=== PATIENT | female | born 1980 | race African-American/Black ===

== ENCOUNTER 2016-06-20 05:10 | Emergency (ER) | payer OTHER ==
[2016-06-20] MEDS ORDERED: LIDOCAINE 1% INJ-PF (10 MG/ML) 30 ML SDV ONE ×2 (05:47→05:51)
--- NOTE | 2016-06-20 06:11 | ER Document Report ---
ED General - General Chief Complaint: Abscess Stated Complaint: ABSCESS ON LEFT LEG Mode of Arrival: Ambulatory Information source: Patient Notes: 36 yr old female with hx of mrsa presents with left inner thigh abscess of 2-3 day duration, denies any fevers or chills . TRAVEL OUTSIDE OF THE [place] IN LAST 30 DAYS: No - HPI Onset: Other Onset/Duration: Persistent, Worse Quality of pain: Sharp Severity: Moderate Pain Level: 2 Associated symptoms: Other Exacerbated by: Movement Relieved by: Denies Similar symptoms previously: Yes Recently seen / treated by doctor: Yes - Related Data Allergies/Adverse Reactions: No Known Allergies Allergy (Unverified 06/20/16 05:24) Past Medical History - Social History Smoking Status: Never Smoker Cigarette use (# per day): No Chew tobacco use (# tins/day): No Smoking Education Provided: No Family History: Reviewed & Not Pertinent, CVA - Brother at the age 50. - Past Medical History Cardiac Medical History: Reports: Hx Hypertension Endocrine Medical History: Reports: Hx Diabetes Mellitus Type 2 Renal/ Medical History: Denies: Hx Peritoneal Dialysis Review of Systems - Review of Systems Notes: REVIEW OF SYSTEMS: CONSTITUTIONAL : Denies fever, chills, or sweats. Denies recent illness. EENT: Denies eye, ear, throat, or mouth pain or symptoms. Denies nasal or sinus congestion or discharge. Denies throat, tongue, or mouth swelling or difficulty swallowing. CARDIOVASCULAR: Denies chest pain. Denies palpitations or racing or irregular heart beat. Denies ankle edema. RESPIRATORY: Denies cough, cold, or chest congestion. Denies shortness of breath, difficulty breathing, or wheezing. GASTROINTESTINAL: Denies abdominal pain or distention. Denies nausea, vomiting , or diarrhea. Denies blood in vomitus, stools, or per rectum. Denies black, tarry stools. Denies constipation. GENITOURINARY: Denies difficulty urinating, painful urination, burning, frequency, blood in urine, or discharge. FEMALE GENITOURINARY: Denies vaginal bleeding, heavy or abnormal periods, irregular periods. Denies vaginal discharge or odor. MUSCULOSKELETAL: Denies back or neck pain or stiffness. Denies joint pain or swelling. SKIN: left thigh abscess HEMATOLOGIC : Denies easy bruising or bleeding. LYMPHATIC: Denies swollen, enlarged glands. NEUROLOGICAL: Denies confusion or altered mental status. Denies passing out or loss of consciousness. Denies dizziness or lightheadedness. Denies headache. Denies weakness or paralysis or loss of use of either side. Denies problems with gait or speech. Denies sensory loss, numbness, or tingling. Denies seizures. PSYCHIATRIC: Denies anxiety or stress. Denies depression, suicidal ideation, or homicidal ideation. ALL OTHER SYSTEMS REVIEWED AND NEGATIVE. Dictation was performed using [employer] voice recognition software PHYSICAL EXAMINATION: GENERAL: Well-appearing, well-nourished and in no acute distress. HEAD: Atraumatic, normocephalic. EYES: Pupils equal round and reactive to light, extraocular movements intact, conjunctiva are normal. ENT: Nares patent, oropharynx clear without exudates. Moist mucous membranes. NECK: Normal range of motion, supple without lymphadenopathy LUNGS: Breath sounds clear to auscultation bilaterally and equal. No wheezes rales or rhonchi. HEART: Regular rate and rhythm without murmurs ABDOMEN: Soft, nontender, nondistended abdomen. No guarding, no rebound. No masses appreciated. Female : deferred Musculoskeletal: Normal range of motion, no pitting or edema. No cyanosis. NEUROLOGICAL: Cranial nerves grossly intact. Normal speech, normal gait. Normal sensory, motor exams PSYCH: Normal mood, normal affect. SKIN:4x5 cm absvcess without cellulitis Physical Exam - Vital signs Vitals: Temp Pulse Resp BP Pulse Ox 97.5 F 99 20 146/96 H 99 06/20/16 05:16 06/20/16 05:16 06/20/16 05:16 06/20/16 05:16 06/20/16 05:16 Course - Re-evaluation Re-evalutation: 06/20/16 06:11 Area was anesthetized incised moderate amount of pus drained patient will be placed on antibiotics is otherwise stable for discharge Restrict return precautions provided recheck in 48 hours After performing a Medical Screening Examination, I estimate there is LOW risk for OPEN FRACTURE, COMPARTMENT SYNDROME, TENDON RUPTURE, ACUTE NEUROVASCULAR INJURY, or RETAINED FOREIGN BODY, thus I consider the discharge disposition reasonable. Also, there is no evidence or peritonitis, sepsis, or toxicity. I have reevaluated this patient multiple times and no significant life threatening changes are noted. The patient and I have discussed the diagnosis and risks, and we agree with discharging home with close follow-up with the understanding that symptoms and presentations can change. We also discussed returning to the Emergency Department immediately if new or worsening symptoms occur. We have discussed the symptoms which are most concerning (e.g., changing or worsening pain, fever, numbness, weakness, cool or painful digits) that necessitate immediate return. - Vital Signs Vital signs: Temp Pulse Resp BP Pulse Ox 97.5 F 99 20 146/96 H 99 06/20/16 05:16 06/20/16 05:16 06/20/16 05:16 06/20/16 05:16 06/20/16 05:16 Procedures - Incision and Drainage Left Thigh Time completed: 06:12 Type: Simple Anesthetic type: 1% Lidocaine mL's of anesthetic: 10 I&D procedure: Shurclens applied, Sterile dressing applied Incision Method: Incision made by scalpel Amount/type of drainage: moderate amount of pus Discharge - Discharge Clinical Impression: Abscess, Left thigh pain Condition: Stable Disposition: HOME, SELF-CARE Instructions: Abscess ([facility]), Post Incision and Drainage Additional Instructions: follow up in 48 hours for recheck or return immediately if there are any other concerns Prescriptions: Cephalexin Monohydrate [Keflex 500 mg Capsule] 500 mg PO QID #40 capsule Ibuprofen [Motrin 800 mg Tablet] 800 mg PO Q8H PRN #30 tab PRN Reason: Sulfamethoxazole/Trimethoprim [Bactrim Ds Tablet] 2 each PO BID #40 tablet
[2016-06-20 06:58] VITALS: BP 133/78
== END 2016-06-20 06:56 | disposition home or self-care (01) ==
LOC: ER 05:10
PROC: 0H9JXZZ Drainage of Left Upper Leg Skin, External Approach (ICD-10-PCS; principal; 2016-06-20)
DX: L02.416 Cutaneous abscess of left lower limb (principal)
CPT/HCPCS: 99283; 10060; J3490

== ENCOUNTER 2017-10-16 05:30 | Emergency (ER) | payer OTHER ==
--- NOTE | 2017-10-16 07:28 | ER Document Report ---
ED General - General Chief Complaint: Abscess Stated Complaint: ABSCESS Time Seen by Provider: 10/16/17 07:23 Mode of Arrival: Ambulatory Information source: Patient TRAVEL OUTSIDE OF THE [place] IN LAST 30 DAYS: No - HPI Notes: 37-year-old female with a medical history diabetes presents to ED with complaints of left buttock abscess that started 3 days ago. Pain is 7 out of 10 , constant, try [id number] ibuprofen and Tylenol without relief. To try warm packs. Denies history of MRSA. States she has recurrent abscesses. Patient does have a history of controlled diabetes. Patient does not have a primary care provider at this time. Worse with time, nothing makes better denies fevers, chills, chest pain,palpitations, shortness of breath, dyspnea, abdominal pain, hematuria,blurred vision, double vision, loss of vision, speech changes, LH, dizziness, syncope, headaches, wheezing, ST, URI, neck pain , weakness, bowel or bladder dysfunction, saddle anesthesia, numbness or tingling in bilateral upper or lower extremities equally, muscle paralysis, weakness in bilateral upper or lower extremities equally or rash. - Related Data Allergies/Adverse Reactions: No Known Allergies Allergy (Verified 10/16/17 07:28) Past Medical History - General Information source: Patient - Social History Smoking Status: Unknown if Ever Smoked Family History: Reviewed & Not Pertinent, CVA - Brother at the age 50. - Past Medical History Cardiac Medical History: Reports: Hx Hypertension Endocrine Medical History: Reports: Hx Diabetes Mellitus Type 2 Renal/ Medical History: Denies: Hx Peritoneal Dialysis Review of Systems - Review of Systems Constitutional: No symptoms reported EENT: No symptoms reported Cardiovascular: No symptoms reported Respiratory: No symptoms reported Gastrointestinal: No symptoms reported Genitourinary: No symptoms reported Female Genitourinary: No symptoms reported Musculoskeletal: No symptoms reported Skin: See HPI Hematologic/Lymphatic: No symptoms reported Neurological/Psychological: No symptoms reported Physical Exam - Vital signs Vitals: Temp Pulse Resp BP Pulse Ox 99.2 F 95 18 150/88 H 100 10/16/17 05:46 10/16/17 05:46 10/16/17 05:46 10/16/17 05:46 10/16/17 05:46 - Notes Notes: PHYSICAL EXAMINATION: GENERAL: Well-appearing, well-nourished and in no acute distress. HEAD: Atraumatic, normocephalic. EYES: Pupils equal round and reactive to light, extraocular movements intact, conjunctiva are normal. ENT: Nares patent, oropharynx clear without exudates. Moist mucous membranes. NECK: Normal range of motion, supple without lymphadenopathy LUNGS: Breath sounds clear to auscultation bilaterally and equal. No wheezes rales or rhonchi. HEART: Regular rate and rhythm without murmurs ABDOMEN: Soft, nontender, nondistended abdomen. No guarding, no rebound. No masses appreciated. Female : deferred Musculoskeletal: Normal range of motion, no pitting or edema. No cyanosis. NEUROLOGICAL: Cranial nerves grossly intact. Normal speech, normal gait. Normal sensory, motor exams PSYCH: Normal mood, normal affect. SKIN: Warm, Dry, normal turgor, no rashes or lesions noted. Left inner buttocks with 3 cm area of induration with erythema, noted fluctuance. No surrounding lymphadenopathy. No surrounding erythema. Tender on palpation. Course - Re-evaluation Re-evalutation: 10/16/17 07:59 37-year-old female who is afebrile vitals stable and in no distress presents for incision and drainage of abscess to left buttocks. Wound culture has been obtained. Will place patient on clindamycin for 4 a boil that she thinks she is starting underneath her arm. Patient does have a long history of abscesses. Patient does not do bleach baths. States she does get the this is in the humidity. Access is right at the inner aspect of the left buttocks proximal to the rectum. Due to the fact patient is a diabetic and the location of the abscess, will prescribe patient antibiotics to prevent infection. Advised patient to return to the emergency room in 2 days for repacking. Patient is advised to eat yogurt daily to prevent diarrhea or nausea. After performing a Medical Screening Examination, I estimate there is LOW risk for OPEN FRACTURE, COMPARTMENT SYNDROME, TENDON RUPTURE, ACUTE NEUROVASCULAR INJURY, or RETAINED FOREIGN BODY, thus I consider the discharge disposition reasonable. Also, there is no evidence or peritonitis, sepsis, or toxicity. I have reevaluated this patient multiple times and no significant life threatening changes are noted. The patient and I have discussed the diagnosis and risks, and we agree with discharging home with close follow-up with the understanding that symptoms and presentations can change. We also discussed returning to the Emergency Department immediately if new or worsening symptoms occur. We have discussed the symptoms which are most concerning (e.g., changing or worsening pain, fever , numbness, weakness, cool or painful digits) that necessitate immediate return. 10/16/17 09:59 - Vital Signs Vital signs: Temp Pulse Resp BP Pulse Ox 99.2 F 95 18 150/88 H 100 10/16/17 05:46 10/16/17 05:46 10/16/17 05:46 10/16/17 05:46 10/16/17 05:46 Procedures - Incision and Drainage Left Buttock Type: Simple Anesthetic type: 1% Lidocaine w/epi mL's of anesthetic: 4 - mL Blade size: 11 I&D procedure: Shurclens applied Incision Method: Incision made by scalpel Amount/type of drainage: 10mL purulent drainage Notes: 10/16/17 09:58 Deann clamp used to break up inoculations. Irrigated with normal saline flush 50 cc, no foreign body seen on expiration of wound. wound Packed with iodoform 1/4th inch, approximately 4 cm packed. When a frame sterile gauze placed over. Advised patient to return to the emergency room 2 days for repacking Discharge - Discharge Clinical Impression: Abscess, Diabetes type 2, controlled Condition: Stable Disposition: HOME, SELF-CARE Instructions: Abscess ([facility]), Post Incision and Drainage, Clindamycin ([facility]), Oral Narcotic Medication ([facility]) Additional Instructions: Do not drive, drink alcohol or operate machinery while taking [place] as it can cause impairment in judgment. Return in 2 days for wound packing. Take antibiotic with food as directed. Monitor ins and signs and symptoms of infection such as redness, drainage, swelling. If experience any worsening pain , fever, lower back pain, weaknesses, numbness or tingling issues with bowel or bladder incontinence, etc, Return to the ED immediately. Return immediately for any new or worsening symptoms. Follow up with primary care provider, call tomorrow to make followup appointment. Prescriptions: Clindamycin HCl 300 mg PO Q6H #28 capsule Forms: Return to Work Referrals: CALI PATEL MD [COMMUNITY BASED STAFF] - Follow up as needed
[2017-10-16] MEDS ORDERED: LIDOCAINE 1.5%/EPINEPHRINE INJ-PF 30 ML SDV INJ ONE (07:52)
[2017-10-16] MEDS ORDERED: HYDROCODONE/ACETAMINOPHEN 5-325 MG (6 TAB/ER DISP) PO PRN (07:56)
[2017-10-16 09:12] VITALS: BP 154/93
== END 2017-10-16 09:05 | disposition home or self-care (01) ==
LOC: ER 05:30
PROC: 0H98XZZ Drainage of Buttock Skin, External Approach (ICD-10-PCS; principal; 2017-10-16)
DX: L02.31 Cutaneous abscess of buttock (principal); E11.9 Type 2 diabetes mellitus without complications; I10 Essential (primary) hypertension
CPT/HCPCS: 99283; 87070; 87205; 10060; J3490

== ENCOUNTER 2018-05-10 10:16 | Emergency (ER) | payer OTHER ==
--- NOTE | 2018-05-10 10:50 | ER Document Report ---
ED General - General Chief Complaint: Vag Bleeding, +preg <12wks Stated Complaint: SPOTTING Time Seen by Provider: 05/10/18 10:31 Primary Care Provider: ROCAEL MONTEMAYOR MD [ACTIVE STAFF] - 05/15/18 TASIA ANDINO FNP-C [Primary Care Provider] - Follow up as needed Mode of Arrival: Ambulatory Information source: Patient, [facility] Records Notes: 37-year-old female a 1 at approximately 6 weeks and 2 days per last menstrual period which was March 27, 2018 presents with complaint of lower abdominal cramping and vaginal bleeding. Patient had a confirmed test at her primary care physician's office on April 29. She states yesterday she began having mild cramping that lasted throughout the day. She states this morning the cramping had improved and when she went to the bathroom she noticed some light pink spotting. Patient denies any dark red blood, passage of clots. 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 She denies any fever, chills, nausea, vomiting, vaginal discharge, dysuria, hematuria. Patient quit smoking tobacco and marijuana when she discovered she was . Patient is scheduled to see OB on May 15, 2018. She did contact her primary care physician's office this morning who recommended coming into the emergency department. TRAVEL OUTSIDE OF THE [place] IN LAST 30 DAYS: No - HPI Onset: Yesterday Onset/Duration: Gradual, Better Quality of pain: Cramping Severity: Mild Associated symptoms: Nausea, Other - Mild vaginal bleeding, abdominal cramping. denies: Body/muscle aches, Chest pain, Chills, Diarrhea, Fever, Hurts to breath, Leg swelling, Vomiting, Shortness of breath Exacerbated by: Denies Relieved by: Denies Similar symptoms previously: No Recently seen / treated by doctor: Yes - Patient's primary care physician on 04/29/2018 - Related Data Allergies/Adverse Reactions: No Known Allergies Allergy (Verified 10/16/17 07:28) Past Medical History - General Information source: Patient, Relative, [facility] Records Last Menstrual Period: 03/27/18 - Social History Smoking Status: Former Smoker Chew tobacco use (# tins/day): No Frequency of alcohol use: None Drug Abuse: None Lives with: Spouse/Significant other Family History: Reviewed & Not Pertinent, CVA - Brother at the age 50. Patient has suicidal ideation: No Patient has homicidal ideation: No - Past Medical History Cardiac Medical History: Reports: Hx Hypertension Endocrine Medical History: Reports: Hx Diabetes Mellitus Type 2 Renal/ Medical History: Denies: Hx Peritoneal Dialysis Past Surgical History: Reports: Hx Breast Surgery - reduction Review of Systems - Review of Systems Notes: REVIEW OF SYSTEMS: CONSTITUTIONAL : Denies fever, chills, or sweats. Denies recent illness. Denies weight loss, recent hospitalizations. EENT: Denies visual changes, eye pain. Denies sore throat, oral lesions, difficulty swallowing. CARDIOVASCULAR: Denies chest pain. Denies palpitations. Denies lower extremity edema. RESPIRATORY: Denies cough. Denies shortness of breath, wheezing. GASTROINTESTINAL: Denies abdominal distention. Denies vomiting, or diarrhea. Denies blood in vomitus, stools, or per rectum. Denies black, tarry stools. Denies constipation. GENITOURINARY: Denies difficulty urinating, painful urination, frequency, blood in urine, or vaginal discharge.+ Vaginal bleeding MUSCULOSKELETAL: Denies back or neck pain or stiffness. Denies joint pain or swelling. SKIN: Denies rash, lesions or sores. HEMATOLOGIC : Denies easy bruising or bleeding. LYMPHATIC: Denies swollen glands. NEUROLOGICAL: Denies confusion or altered mental status. Denies loss of consciousness. Denies dizziness or lightheadedness. Denies headache. Denies weakness or paralysis. Denies problems difficulty with ambulation, slurred speech. Denies sensory loss, numbness, or tingling. Denies seizures. PSYCHIATRIC: Denies anxiety or stress. Denies depression, suicidal ideation, or homicidal ideation. Denies visual or auditory hallucinations. Physical Exam - Vital signs Vitals: Temp Pulse Resp BP Pulse Ox 98.9 F 97 16 151/80 H 100 05/10/18 10:21 05/10/18 10:21 05/10/18 10:21 05/10/18 10:21 05/10/18 10:21 - Notes Notes: PHYSICAL EXAMINATION: GENERAL: Well-appearing, well-nourished and in no acute distress. HEAD: Atraumatic, normocephalic. EYES: Pupils equal round and reactive to light, extraocular movements intact, conjunctiva are normal. ENT: Nares patent, oropharynx clear without exudates. Moist mucous membranes. NECK: Normal range of motion, supple without lymphadenopathy LUNGS: Breath sounds clear to auscultation bilaterally and equal. No wheezes rales or rhonchi. HEART: Regular rate and rhythm without murmurs ABDOMEN: Soft, nontender, nondistended abdomen. No guarding, no rebound. No masses appreciated. Female : Cervix closed, no vaginal bleeding Musculoskeletal: Normal range of motion, no pitting or edema. No cyanosis. NEUROLOGICAL: Cranial nerves grossly intact. Normal speech, normal gait. Normal sensory, motor exams PSYCH: Normal mood, normal affect. SKIN: Warm, Dry, normal turgor, no rashes or lesions noted. Course - Re-evaluation Re-evalutation: Temp Pulse Resp BP Pulse Ox 98.9 F 97 16 151/80 H 100 05/10/18 10:21 05/10/18 10:21 05/10/18 10:21 05/10/18 10:21 05/10/18 10:21 Laboratory 05/10/18 05/10/18 05/10/18 11:09 11:09 11:43 WBC 11.2 H RBC 4.54 Hgb 13.3 Hct 40.1 MCV 88 MCH 29.3 MCHC 33.2 RDW 15.3 H Plt Count 367 Seg Neutrophils % 60.9 Lymphocytes % 29.9 Monocytes % 6.3 Eosinophils % 1.8 Basophils % 1.1 Absolute Neutrophils 6.8 Absolute Lymphocytes 3.3 Absolute Monocytes 0.7 Absolute Eosinophils 0.2 Absolute Basophils 0.1 Beta HCG, Quant 69501.00 H Total Beta HCG POSITIVE Urine Color Urine Appearance Urine pH Ur Specific [place] Urine Protein Urine Glucose (UA) Urine Ketones Urine Blood Urine Nitrite Urine Bilirubin Urine Urobilinogen Ur Leukocyte Esterase Urine WBC (Auto) Urine RBC (Auto) Squamous Epi Cells Auto Urine Mucus (Auto) Urine Ascorbic Acid Blood Type O POSITIVE Rhogam Indicated RHOGAM NOT INDICATED 05/10/18 11:43 WBC RBC Hgb Hct MCV MCH MCHC RDW Plt Count Seg Neutrophils % Lymphocytes % Monocytes % Eosinophils % Basophils % Absolute Neutrophils Absolute Lymphocytes Absolute Monocytes Absolute Eosinophils Absolute Basophils Beta HCG, Quant Total Beta HCG Urine Color YELLOW Urine Appearance CLEAR Urine pH 6.0 Ur Specific [place] 1.021 Urine Protein NEGATIVE Urine Glucose (UA) 50 H Urine Ketones TRACE H Urine Blood NEGATIVE Urine Nitrite NEGATIVE Urine Bilirubin NEGATIVE Urine Urobilinogen 4.0 H Ur Leukocyte Esterase NEGATIVE Urine WBC (Auto) 1 Urine RBC (Auto) 1 Squamous Epi Cells Auto 2 Urine Mucus (Auto) FEW Urine Ascorbic Acid NEGATIVE Blood Type Rhogam Indicated Obstetrics Ultrasound 05/10/18 10:44 IMPRESSION: LIVING INTRAUTERINE . EGA 6 weeks 2 days. Uterine fibroid. Trimester of : First - 0 to 13 weeks. 05/10/18 10:51 37-year-old female A1 at approximately 6 weeks and 2 days per last menstrual period presents with complaint of abdominal cramping and mild vaginal bleeding. Previous medical records and nursing notes reviewed. Vital signs reviewed upon arrival and within normal limit except for mildly elevated blood pressure which patient does have a history of. Patient does not appear toxic or dehydrated. She does not have any reproducible abdominal pain. Laboratory testing is unremarkable. Patient does not need RhoGam. Transvaginal ultrasound showed a live intrauterine . Patient does have an upcoming appointment with OB in 1 week. She was advised that if abdominal pain worsens or she experiences worsening vaginal bleeding she should return to the emergency department immediately. Patient was provided copies of her lab work and imaging that were performed today. Patient was evaluated and treated as appropriate for the patient's presenting symptoms and complaint, with consideration of any critical or life threatening conditions that may be associated with their obtained history and exam as noted above. All results were discussed with patient . Patient provided the opportunity to ask questions, and express concerns. Patient was educated on treatments based on their presumed diagnosis as noted above. At this time we will discharge the patient with return precautions and follow-up recommendations. Verbal discharge instructions given a the bedside. Medication warnings reviewed. Patient is in agreement with this plan and has verbalized understanding of return precautions. After careful consideration I feel that that patient can be safely discharged from the emergency department, they were advised to followup with a primary care physician in 2-3 days. Dictation on this chart was performed using voice recognition software and may result in unintended grammatical, spelling, syntax or errors. 05/10/18 19:31 - Vital Signs Vital signs: Temp Pulse Resp BP Pulse Ox 98.9 F 91 18 143/86 H 100 05/10/18 10:21 05/10/18 13:00 05/10/18 13:00 05/10/18 13:00 05/10/18 13:00 - Laboratory Result Diagrams: 05/10/18 11:09 Laboratory results interpreted by me: 05/10/18 05/10/18 05/10/18 11:09 11:43 11:43 WBC 11.2 H RDW 15.3 H Beta HCG, Quant 22535.00 H Urine Glucose (UA) 50 H Urine Ketones TRACE H Urine Urobilinogen 4.0 H - Diagnostic Test Radiology reviewed: Image reviewed, Reports reviewed Discharge - Discharge Clinical Impression: Vaginal bleeding during , Threatened miscarriage, First trimester Abdominal pain in Qualifiers: Trimester: first trimester Qualified Code(s): O26.891 - Other specified related conditions, first trimester Hypertension Qualifiers: Hypertension type: unspecified Qualified Code(s): I10 - Essential (primary) hypertension Condition: Good Disposition: HOME, SELF-CARE Instructions: Bleeding During Early ([facility]), Pelvic Pain in ([facility]), ([facility]), Threatened Miscarriage ([facility]) Additional Instructions: Please return with worsening pain, worsening bleeding or any other symptoms that are concerning to you. I have provided you your blood work and imaging results that you should bring with you to your [facility] doctor on May 15. Forms: Elevated Blood Pressure, Return to Work Referrals: TASIA ANDINO, [facility] [employer]-[facility] [Primary Care Provider] - Follow up as needed ROCAEL MONTEMAYOR MD [ACTIVE STAFF] - 05/15/18
[2018-05-10 11:39] LABS: ABSOLUTE BASOPHILS # (AUTO) 0.1 10^3/uL (0.0-0.2); ABSOLUTE EOSINOPHILS # (AUTO) 0.2 10^3/uL (0.0-0.6); ABSOLUTE LYMPHOCYTES (AUTO) 3.3 10^3/uL (0.5-4.7); ABSOLUTE MONOCYTES (AUTO) 0.7 10^3/uL (0.1-1.4); ABSOLUTE NEUT (AUTO) 6.8 10^3/uL (1.7-8.2); BASOPHILS % (AUTO) 1.1 % (0-2); EOSINOPHILS % (AUTO) 1.8 % (0-6); HEMATOCRIT 40.1 % (36.0-47.0); HEMOGLOBIN 13.3 g/dL (12.0-15.5); LYMPHOCYTES % (AUTO) 29.9 % (13-45); MEAN CORPUSCULAR HEMOGLOBIN 29.3 pg (27.0-33.4); MEAN CORPUSCULAR HGB CONC 33.2 g/dL (32.0-36.0); MEAN CORPUSCULAR VOLUME 88 fl (80-97); MONOCYTES % (AUTO) 6.3 % (3-13); PLATELET COUNT 367 10^3/uL (150-450); RED BLOOD COUNT 4.54 10^6/uL (3.72-5.28); RED CELL DISTRIBUTION WIDTH 15.3 % (11.5-14.0); SEGMENTED NEUTROPHILS % (AUTO) 60.9 % (42-78); TOTAL CELLS COUNTED % (AUTO) 100 %; WHITE BLOOD COUNT 11.2 10^3/uL (4.0-10.5)
[2018-05-10 12:07] LABS: APPEARANCE,URINE CLEAR; BILIRUBIN,URINE NEGATIVE (NEGATIVE); COLOR,URINE YELLOW; GLUCOSE, URINE 50 mg/dL (NEGATIVE); KETONES,URINE TRACE mg/dL (NEGATIVE); LEUKOCYTE ESTERASE,URINE NEGATIVE (NEGATIVE); NITRITE,URINE NEGATIVE (NEGATIVE); PROTEIN,URINE NEGATIVE (NEGATIVE); URINE SPECIFIC GRAVITY 1.021
--- NOTE | 2018-05-10 12:22 | RADIOLOGY REPORT (SQ) ---
EXAM DESCRIPTION: U/S OB TRANSVAGINAL W/O DOP COMPLETED DATE/TIME: 05/10/2018 11:49 am REASON FOR STUDY: + wiht pain and bleeding COMPARISON: None. TECHNIQUE: Transvaginal static and realtime grayscale images acquired of the pelvis. Additional mile cted spectral and color Doppler images recorded. All images stored on PACs. bHCG: Not available. CLINICAL DATES: 6 weeks 2 days LIMITATIONS: None. FINDINGS: FETUS: Single Living intrauterine . ULTRASOUND EGA: 6 weeks 2 days ULTRASOUND ELVI: 12/04/2018 EFW: Not applicable less than 20 weeks. CRL: 6 mm FHR: 114 beats per minute. SURVEY: No visualized anomalies. AMNIOTIC FLUID: Adequate amount. PLACENTA: Not yet developed due to early gestation. SUBCHORIONIC BLEED: No. SIZE OF BLEED: Not applicable. UTERUS: 2.5 cm fibroid. CERVICAL LENGTH: 3.3 cm. Closed. RIGHT ADNEXA: Normal ovary with normal vascular flow. No adnexal free fluid. No adnexal masses. LEFT ADNEXA: Normal ovary with normal vascular flow. No adnexal free fluid. No adnexal masses. FREE FLUID: None. OTHER: No other significant finding. IMPRESSION: LIVING INTRAUTERINE . EGA 6 weeks 2 days. Uterine fibroid. Trimester of : First - 0 to 13 weeks. TECHNICAL DOCUMENTATION: JOB ID: [id number]- All Rights Reserved rev Reading location - IP/workstation name: [email or web address]
[2018-05-10 13:13] VITALS: BP 143/86
== END 2018-05-10 13:00 | disposition home or self-care (01) ==
LOC: ER 10:16
DX: O20.0 Threatened abortion (principal); O34.11 Maternal care for benign tumor of corpus uteri, first trimester; D25.9 Leiomyoma of uterus, unspecified; O26.891 Other specified pregnancy related conditions, first trimester; R10.30 Lower abdominal pain, unspecified; R11.0 Nausea; O16.1 Unspecified maternal hypertension, first trimester; O24.111 Pre-existing type 2 diabetes mellitus, in pregnancy, first trimester; E11.9 Type 2 diabetes mellitus without complications; Z3A.01 Less than 8 weeks gestation of pregnancy; Z87.891 Personal history of nicotine dependence
CPT/HCPCS: 36415; 76817; 81001; 84702; 85025; 86900; 86901; 99284

== ENCOUNTER → 2018-10-13 | Outpatient (CLI) | payer OTHER ==
[2018-10-13 10:47] LABS: HEMATOCRIT 39.1 % (36.0-47.0); HEMOGLOBIN 12.7 g/dL (12.0-15.5); MEAN CORPUSCULAR HEMOGLOBIN 29.1 pg (27.0-33.4); MEAN CORPUSCULAR HGB CONC 32.5 g/dL (32.0-36.0); MEAN CORPUSCULAR VOLUME 90 fl (80-97); PLATELET COUNT 318 10^3/uL (150-450); RED BLOOD COUNT 4.37 10^6/uL (3.72-5.28); RED CELL DISTRIBUTION WIDTH 13.9 % (11.5-14.0); WHITE BLOOD COUNT 11.3 10^3/uL (4.0-10.5)
[2018-10-13 11:11] LABS: ANION GAP 9 (5-19); ASPARTATE AMINO TRANSFERASE 16 U/L (14-36); CARBON DIOXIDE 24 mmol/L (22-30); CHLORIDE 105 mmol/L (98-107); POTASSIUM 3.8 mmol/L (3.6-5.0); URIC ACID 4.7 mg/dL (2.5-7.0)
== END ==
LOC: OD 09:56
PROVIDERS: ATTEND Obstetrics & Gynecology
DX: O14.03 Mild to moderate pre-eclampsia, third trimester (principal)
CPT/HCPCS: 36415; 80051; 82565; 83615; 84450; 84550; 85027

== ENCOUNTER 2018-10-27 11:34 | Outpatient (CLI) | payer OTHER ==
[2018-10-27 12:27] LABS: APPEARANCE,URINE SLIGHTLY-CLOUDY; BILIRUBIN,URINE NEGATIVE (NEGATIVE); COLOR,URINE YELLOW; GLUCOSE, URINE NEGATIVE (NEGATIVE); KETONES,URINE NEGATIVE (NEGATIVE); LEUKOCYTE ESTERASE,URINE NEGATIVE (NEGATIVE); NITRITE,URINE NEGATIVE (NEGATIVE); PROTEIN,URINE NEGATIVE (NEGATIVE); URINE SPECIFIC GRAVITY 1.018; UROBILINOGEN,URINE NEGATIVE mg/dL (<2.0)
[2018-10-27 12:30] LABS: HEMATOCRIT 39.3 % (36.0-47.0); MEAN CORPUSCULAR HEMOGLOBIN 29.7 pg (27.0-33.4); MEAN CORPUSCULAR VOLUME 90 fl (80-97); PLATELET COUNT 295 10^3/uL (150-450); RED BLOOD COUNT 4.37 10^6/uL (3.72-5.28); RED CELL DISTRIBUTION WIDTH 14.4 % (11.5-14.0); WHITE BLOOD COUNT 10.6 10^3/uL (4.0-10.5)
[2018-10-27 12:43] LABS: URINE AMPHETAMINES SCREEN NEGATIVE; URINE BARBITURATES SCREEN NEGATIVE; URINE BENZODIAZEPINES SCREEN NEGATIVE; URINE COCAINE SCREEN NEGATIVE; URINE MARIJUANA (THC) SCREEN NEGATIVE; URINE METHADONE SCREEN NEGATIVE; URINE PHENCYCLIDINE SCREEN NEGATIVE
[2018-10-27 12:52] LABS: ALBUMIN 3.4 g/dL (3.5-5.0); ALKALINE PHOSPHATASE 93 U/L (38-126); ANION GAP 9 (5-19); ASPARTATE AMINO TRANSFERASE 16 U/L (14-36); BILIRUBIN,DIRECT 0.1 mg/dL (0.0-0.4); BILIRUBIN,TOTAL 0.3 mg/dL (0.2-1.3); BLOOD UREA NITROGEN 12 mg/dL (7-20); CALCIUM 10.3 mg/dL (8.4-10.2); CARBON DIOXIDE 23 mmol/L (22-30); CHLORIDE 106 mmol/L (98-107); GLUCOSE 105 mg/dL (75-110); POTASSIUM 3.8 mmol/L (3.6-5.0); TOTAL PROTEIN 6.3 g/dL (6.3-8.2); URIC ACID 5.7 mg/dL (2.5-7.0)
[2018-10-27 13:03] LABS: UR PRO/CREAT RATIO RESULT 0.1 mg/mg (0.0-0.2); URINE CREATININE 112.6 mg/dL (16-327); URINE PROTEIN 8.8 mg/dL (<12)
== END 2018-10-27 13:56 | disposition home or self-care (01) ==
LOC: LC 11:34
PROVIDERS: ATTEND Obstetrics & Gynecology
PROC: 4A1HXCZ Monitoring of Products of Conception, Cardiac Rate, External Approach (ICD-10-PCS; principal; 2018-10-27)
DX: O14.93 Unspecified pre-eclampsia, third trimester (principal); Z3A.30 30 weeks gestation of pregnancy
CPT/HCPCS: 36415; 80053; 80307; 81001; 82570; 84156; 84550; 85027

== ENCOUNTER 2018-11-04 11:11 | Outpatient (CLI) | payer OTHER ==
[2018-11-04 11:37] LABS: APPEARANCE,URINE SLIGHTLY-CLOUDY; BILIRUBIN,URINE NEGATIVE (NEGATIVE); COLOR,URINE YELLOW; GLUCOSE, URINE NEGATIVE (NEGATIVE); KETONES,URINE NEGATIVE (NEGATIVE); LEUKOCYTE ESTERASE,URINE NEGATIVE (NEGATIVE); NITRITE,URINE NEGATIVE (NEGATIVE); PROTEIN,URINE NEGATIVE (NEGATIVE); URINE SPECIFIC GRAVITY 1.005; UROBILINOGEN,URINE NEGATIVE mg/dL (<2.0)
[2018-11-04 11:55] LABS: URINE AMPHETAMINES SCREEN NEGATIVE; URINE BARBITURATES SCREEN NEGATIVE; URINE BENZODIAZEPINES SCREEN NEGATIVE; URINE COCAINE SCREEN NEGATIVE; URINE MARIJUANA (THC) SCREEN NEGATIVE; URINE METHADONE SCREEN NEGATIVE; URINE PHENCYCLIDINE SCREEN NEGATIVE
[2018-11-04 12:00] LABS: UR PRO/CREAT RATIO RESULT 0.3 mg/mg (0.0-0.2); URINE CREATININE 43.5 mg/dL (16-327); URINE PROTEIN 12.7 mg/dL (<12)
[2018-11-04 12:56] LABS: HEMATOCRIT 36.4 % (36.0-47.0); HEMOGLOBIN 12.1 g/dL (12.0-15.5); MEAN CORPUSCULAR HEMOGLOBIN 30.2 pg (27.0-33.4); MEAN CORPUSCULAR HGB CONC 33.2 g/dL (32.0-36.0); MEAN CORPUSCULAR VOLUME 91 fl (80-97); PLATELET COUNT 265 10^3/uL (150-450); RED BLOOD COUNT 3.99 10^6/uL (3.72-5.28); RED CELL DISTRIBUTION WIDTH 14.7 % (11.5-14.0); WHITE BLOOD COUNT 9.6 10^3/uL (4.0-10.5)
[2018-11-04 13:31] LABS: ALKALINE PHOSPHATASE 89 U/L (38-126); ANION GAP 6 (5-19); ASPARTATE AMINO TRANSFERASE 21 U/L (14-36); BILIRUBIN,DIRECT 0.2 mg/dL (0.0-0.4); BILIRUBIN,TOTAL 0.3 mg/dL (0.2-1.3); BLOOD UREA NITROGEN 12 mg/dL (7-20); CALCIUM 9.5 mg/dL (8.4-10.2); CARBON DIOXIDE 23 mmol/L (22-30); CHLORIDE 109 mmol/L (98-107); POTASSIUM 4.2 mmol/L (3.6-5.0); URIC ACID 6.5 mg/dL (2.5-7.0)
[2018-11-04 13:39] LABS: GLUCOSE 69 mg/dL (75-110)
== END 2018-11-04 13:48 | disposition home or self-care (01) ==
LOC: LC 11:11
PROVIDERS: ATTEND Obstetrics & Gynecology
PROC: 4A1HXCZ Monitoring of Products of Conception, Cardiac Rate, External Approach (ICD-10-PCS; principal; 2018-11-04)
DX: O16.3 Unspecified maternal hypertension, third trimester (principal); O24.913 Unspecified diabetes mellitus in pregnancy, third trimester; O09.523 Supervision of elderly multigravida, third trimester; Z3A.31 31 weeks gestation of pregnancy
CPT/HCPCS: 36415; 80053; 80307; 81001; 82570; 82962; 84156; 84550; 85027

== ENCOUNTER 2018-11-10 11:41 | Inpatient (IN) | payer OTHER ==
[2018-11-10 12:30] LABS: ABSOLUTE EOSINOPHILS # (AUTO) 0.1 10^3/uL (0.0-0.6); ABSOLUTE LYMPHOCYTES (AUTO) 4.1 10^3/uL (0.5-4.7); ABSOLUTE MONOCYTES (AUTO) 0.9 10^3/uL (0.1-1.4); ABSOLUTE NEUT (AUTO) 5.2 10^3/uL (1.7-8.2); BASOPHILS % (AUTO) 0.3 % (0-2); EOSINOPHILS % (AUTO) 0.9 % (0-6); HEMATOCRIT 37.3 % (36.0-47.0); HEMOGLOBIN 12.3 g/dL (12.0-15.5); LYMPHOCYTES % (AUTO) 39.9 % (13-45); MEAN CORPUSCULAR HEMOGLOBIN 29.9 pg (27.0-33.4); MEAN CORPUSCULAR VOLUME 91 fl (80-97); MONOCYTES % (AUTO) 8.7 % (3-13); PLATELET COUNT 251 10^3/uL (150-450); RED BLOOD COUNT 4.12 10^6/uL (3.72-5.28); RED CELL DISTRIBUTION WIDTH 15.3 % (11.5-14.0); SEGMENTED NEUTROPHILS % (AUTO) 50.2 % (42-78); TOTAL CELLS COUNTED % (AUTO) 100 %; WHITE BLOOD COUNT 10.3 10^3/uL (4.0-10.5)
[2018-11-10 12:43] LABS: APPEARANCE,URINE CLEAR; BILIRUBIN,URINE NEGATIVE (NEGATIVE); COLOR,URINE AMBER; GLUCOSE, URINE NEGATIVE (NEGATIVE); KETONES,URINE NEGATIVE (NEGATIVE); LEUKOCYTE ESTERASE,URINE NEGATIVE (NEGATIVE); NITRITE,URINE NEGATIVE (NEGATIVE); PROTEIN,URINE NEGATIVE (NEGATIVE); URINE SPECIFIC GRAVITY 1.008; UROBILINOGEN,URINE NEGATIVE mg/dL (<2.0)
[2018-11-10] MEDS ORDERED: BETAMET ACET/BETAMET NA INJ 6 MG/1 ML ONE (12:50)
[2018-11-10 12:51] LABS: ALBUMIN 3.2 g/dL (3.5-5.0); ALKALINE PHOSPHATASE 115 U/L (38-126); ANION GAP 8 (5-19); ASPARTATE AMINO TRANSFERASE 28 U/L (14-36); BILIRUBIN,DIRECT 0.1 mg/dL (0.0-0.4); BILIRUBIN,TOTAL 0.6 mg/dL (0.2-1.3); BLOOD UREA NITROGEN 9 mg/dL (7-20); CALCIUM 9.6 mg/dL (8.4-10.2); CARBON DIOXIDE 23 mmol/L (22-30); CHLORIDE 108 mmol/L (98-107); GLUCOSE 76 mg/dL (75-110); POTASSIUM 3.8 mmol/L (3.6-5.0); TOTAL PROTEIN 6.4 g/dL (6.3-8.2)
[2018-11-10 13:00] LABS: URIC ACID 6.3 mg/dL (2.5-7.0)
[2018-11-10 13:07] LABS: URINE AMPHETAMINES SCREEN NEGATIVE; URINE BARBITURATES SCREEN NEGATIVE; URINE BENZODIAZEPINES SCREEN NEGATIVE; URINE COCAINE SCREEN NEGATIVE; URINE METHADONE SCREEN NEGATIVE; URINE PHENCYCLIDINE SCREEN NEGATIVE
--- NOTE | 2018-11-10 13:11 | Admission Physical ---
Datetime Report Generated by CPN: 11/10/2018 13:11 CURRENT ADMISSION Chief Complaint: Sent from OB Office for Evaluation and Treatment - Please Specify Indication for Induction: Not Applicable; IUGR; Chronic Primary/Essential HTN; Maternal Diabetes Admit Impression : , Intrauterine ; Observation/Evaluation; Medical Complication Admit Plan: Admit to Unit; Observation/Evaluation Admit Plan- Other: patient was sent from [facility] office for eval for possible ACS protocol due to hypertension in office. Spoke with [facility] regarding my recs for ACS and adjusting her BP meds and putting her back on HCTZ. Dr. Goss in agreement and recommends keeping patient in hospital while getting steroids due to affects it will have on patient's sugars. ALLERGIES Medication Allergies: No Medication Allergies: No Known Allergies (11/04/2018) Latex: No Latex Allergies OBSTETRICAL HISTORY EDC: 01/01/2019 00:00 : 2 : 1 Livin Gestational Diabetes: No Rh Sensitization: No Incompetent Cervix: No JET: No Infertility: No ART Treatment: No Uterine Anomaly: No IUGR: No Hx Previous C/S: No Macrosomia: No Hx Loss/Stillborn: Yes PIH: No Hx : No Placenta Previa/Abruption: No Depression/PP Depression: No PTL/PROM: Yes Post Hemorrhage: No Current Procedures: Ultrasound; NST Obstetrical History Comments: G1- 2003, stillborn at 21 weeks G2- Current SEE RECORDS Alcohol: No Marijuana : No Cocaine: No Other Illicit Drugs: No Cigarettes: Former Smoker. [id number] MEDICAL HISTORY Diabetes: Yes Diabetes Type: Type II - NIDDM Blood Transfusion: No Pulmonary Disease (Asthma, TB): No Breast Disease: Yes Hypertension: Yes Client Service And Consulting Manager Surgery: No Heart Disease: No Hosp/Surgery: Yes Autoimmune Disorder: No Anesthetic Complications: No Kidney Disease: No Abnormal Pap Smear: No Neuro/Epilepsy: No Psychiatric Disorders: No Other Medical Diseases: No Hepatitis/Liver Disease: No Significant Family History: No Varicosities/Phlebitis: No Trauma/Violence : No Thyroid Dysfunction: No INFECTIOUS HISTORY Gonorrhea: Yes Genital Herpes: No Chlamydia: Yes Tuberculosis: No Syphilis: No Hepatitis: No HIV/AIDS Exposure: No Rash or Viral Illness: No HPV: No Infectious History Comments: gonorrhea, chlamydia at age 23 with 1st PHYSICAL EXAM General: Normal HEENT: Normal Neurologic: Normal Thyroid: Normal Heart: Normal Lungs: Normal Breast: Normal Back: Normal Abdomen: Normal Genitourinary Exam: Normal Extremities: Normal DTRs: Normal Pelvic Type: Adequate Vital Signs: Reviewed Details Vital Signs: several elevated values c/w patient's known CHTN FETUS A EGA: 32.4 Monitoring: External US Estimated Weight (gm): 1400 Admit Comment: admit for ACS and glucose control. Add back HCTZ to her current Labetolol. Has had 24 hr protein recently at >500 therefore, c/w SONIA. Plan for discharge later in the week after sugars have stabilized. PLANS FOR LABOR AND DELIVERY Labor and Delivery: None Pain Management: Natural Feeding Preference: Breast Benefit of Breast Feed Discussed: Yes Circumcision: Yes INFORMED CONSENT Signature: with User ID: [email or web address]
[2018-11-10 13:13] LABS: URINE MARIJUANA (THC) SCREEN UNCONFIRMED POSITIVE
[2018-11-10 13:25] LABS: UR PRO/CREAT RATIO RESULT 0.2 mg/mg (0.0-0.2); URINE CREATININE 73.1 mg/dL (16-327); URINE PROTEIN 14.7 mg/dL (<12)
[2018-11-10] MEDS ORDERED: HYDROCHLOROTHIAZIDE 25 MG TABLET ONE (14:01)
[2018-11-10] MEDS: HYDROCHLOROTHIAZIDE 25 MG TABLET PO SCH (14:59)
[2018-11-10] MEDS: METFORMIN HCL 500 MG TABLET PO SCH (17:55)
[2018-11-10] MEDS: INSULIN LISPRO 100 UNIT/ML 3 ML VIAL SUBCUT SCH (17:57)
[2018-11-10] MEDS: INSULIN REG, HUMAN 100 UNIT/ML 3 ML VIAL (PYX) SUBCUT SCH (17:58)
[2018-11-10] MEDS: LABETALOL HCL 200 MG TABLET PO SCH (21:21)
[2018-11-11] MEDS: INSULIN LISPRO 100 UNIT/ML 3 ML VIAL SUBCUT SCH ×3 (08:52→17:50)
[2018-11-11] MEDS: METFORMIN HCL 500 MG TABLET PO SCH ×2 (08:52→17:49)
[2018-11-11] MEDS: INSULIN REG, HUMAN 100 UNIT/ML 3 ML VIAL (PYX) SUBCUT SCH ×2 (08:53→17:50)
[2018-11-11] MEDS ORDERED: HYDROCHLOROTHIAZIDE 25 MG TABLET PO SCH (10:00)
--- NOTE | 2018-11-11 10:22 | PDOC PROGRESS REPORT ---
Subjective Progress Note for:: 11/11/18 Subjective:: She is doing well today Reason For Visit: Physical Exam - Physical Exam Vital Signs: Temp Pulse Resp BP Pulse Ox 98.0 F 80 18 138/81 H 99 11/11/18 07:33 11/11/18 07:33 11/11/18 07:33 11/11/18 07:33 11/11/18 07:33 Intake & Output 11/10/18 11/11/18 11/12/18 06:59 06:59 06:59 Weight 131.1 kg General appearance: PRESENT: no acute distress, well-developed, well-nourished Result Laboratory Results: 11/10/18 12:18 11/10/18 12:18 11/10/18 11/10/18 11/10/18 12:01 12:18 12:18 WBC 10.3 RBC 4.12 Hgb 12.3 Hct 37.3 MCV 91 MCH 29.9 MCHC 33.0 RDW 15.3 H Plt Count 251 Seg Neutrophils % 50.2 Sodium 138.8 Potassium 3.8 Chloride 108 H Carbon Dioxide 23 Anion Gap 8 BUN 9 Creatinine 0.85 Est GFR ( Amer) > 60 Glucose 76 Uric Acid 6.3 Calcium 9.6 Total Bilirubin 0.6 AST 28 Alkaline Phosphatase 115 Total Protein 6.4 Albumin 3.2 L Urine Color SAYRA Urine Appearance CLEAR Urine pH 6.0 Ur Specific [place] 1.008 Urine Protein NEGATIVE Urine Glucose (UA) NEGATIVE Urine Ketones NEGATIVE Urine Blood NEGATIVE Urine Nitrite NEGATIVE Ur Leukocyte Esterase NEGATIVE Urine WBC (Auto) 9 Urine RBC (Auto) 1 Impressions: Patient receiving steroids to promote lung maturity in case she needs to be delivered early for hypertension diabetes or IUGR. Assessment & Plan - Diagnosis (2) Hypertension affecting Is this a current diagnosis for this admission?: Yes - Time Anticipated discharge: Home Within: within 48 hours - Plan Summary Plan Summary: Plan is to complete her steroid dosing for the baby and monitor her blood sugars until
[2018-11-11] MEDS: HYDROCHLOROTHIAZIDE 25 MG TABLET PO SCH (10:33)
[2018-11-11] MEDS: LABETALOL HCL 200 MG TABLET PO SCH ×2 (10:33→21:19)
[2018-11-11] MEDS ORDERED: BETAMET ACET/BETAMET NA INJ 6 MG/1 ML IM ONE (12:30)
[2018-11-12] MEDS: INSULIN LISPRO 100 UNIT/ML 3 ML VIAL SUBCUT SCH ×3 (09:27→18:32)
[2018-11-12] MEDS: INSULIN REG, HUMAN 100 UNIT/ML 3 ML VIAL (PYX) SUBCUT SCH ×2 (09:28→18:32)
[2018-11-12] MEDS: METFORMIN HCL 500 MG TABLET PO SCH ×2 (09:28→18:31)
[2018-11-12] MEDS: HYDROCHLOROTHIAZIDE 25 MG TABLET PO SCH (11:01)
[2018-11-12] MEDS: LABETALOL HCL 200 MG TABLET PO SCH ×2 (11:02→21:12)
--- NOTE | 2018-11-12 14:23 | PDOC PROGRESS REPORT ---
Subjective Progress Note for:: 11/12/18 Subjective:: 38yo female with hx of type II DM, superimpossed pre-e inpatient status for glucose and hypertension management. Has questions about discharge and work hours for the rest of the . Reports diarrhea and abdominal pain last night with mild headache, no pain today. Reason For Visit: Physical Exam - Physical Exam Vital Signs: Temp Pulse Resp BP Pulse Ox 98.4 F 74 18 147/80 H 100 11/12/18 11:18 11/12/18 11:18 11/12/18 11:18 11/12/18 11:18 11/12/18 11:18 Intake & Output 11/11/18 11/12/18 11/13/18 06:59 06:59 06:59 Intake Total 450 Balance 450 Weight 131.1 kg 128.4 kg General appearance: PRESENT: no acute distress Result Laboratory Results: 11/10/18 12:18 11/10/18 12:18 Assessment & Plan - Diagnosis (1) Diabetes in Qualifiers: Diabetes in type: pre-existing, type 2 Trimester: third trimester Qualified Code(s): O24.113 - Pre-existing type 2 diabetes mellitus, in , third trimester Is this a current diagnosis for this admission?: Yes Plan: patient on insulin and metformin. Using protocol from admission. Fasting this AM 85. Status post celestone for lung maturity (2) Hypertension affecting Qualifiers: Trimester: third trimester Qualified Code(s): O16.3 - Unspecified maternal hypertension, third trimester Is this a current diagnosis for this admission?: Yes Plan: pt with CHTN and just diagnosed with SONIA. Bps mild range today, elevated due to diarrhea and abdominal pain last night. Denies s/s of pre-e. Plan is to continue new medications on discharge and follow up twice weekly (mondays at [facility] at our office). (3) Qualifiers: Weeks of gestation: 32 weeks Qualified Code(s): Z3A.32 - 32 weeks gestation of Is this a current diagnosis for this admission?: Yes Plan: Continue with orders per Dr. Alegre, should be able to be discharged tomorrow as scheduled by Dr. Alegre and reviewed with Dr Dempsey who is the OB on today. Continue twice weekly visits - Time Time Spent with patient: 15-24 minutes Medications reviewed and adjusted accordingly: Yes Anticipated discharge: Home Within: within 24 hours
--- NOTE | 2018-11-12 17:14 | RADIOLOGY REPORT (SQ) ---
EXAM DESCRIPTION: U/S PROFILE W/O STRESS COMPLETED DATE/TIME: 11/12/2018 5:04 pm REASON FOR STUDY: nonreactive NST COMPARISON: None. TECHNIQUE: Limited brennan-scale realtime and static images of the fetus to measure specified parameter s. LIMITATIONS: None. FINDINGS: HEART RATE: 149 beats per minute. ALEJANDRINA: 6.6 cm. BREATHING MOVEMENT: 2 points. MOVEMENT: 2 points. POSTURE AND TONE: 2 points. QUALITATIVE ALEJANDRINA: 0 points. OTHER: Breech presentation. IMPRESSION: BIOPHYSICAL PROFILE: 08/09. Trimester of : Third - 28 weeks to delivery COMMENT: BREATHING MOVEMENTS: 2 POINTS: PRESENT 0 POINTS: ABSENT MOTION: 2 POINTS: PRESENT 0 POINTS: ABSENT TONE: 2 POINTS: PRESENT 0 POINTS: ABSENT AMNIOTIC FLUID VOLUME: 2 POINTS: LARGEST POCKET GREATER THAN 2 CM DEPTH. 0 POINTS: NO POCKET OF 2 CM. TECHNICAL DOCUMENTATION: JOB ID: [id number] 2010 [employer]- All Rights Reserved Reading location - IP/workstation name: [email or web address]
[2018-11-12] MEDS ORDERED: RINGERS SOLUTION,LACTATED 1,000 ML IV PRN (23:55)
--- NOTE | 2018-11-13 09:19 | RADIOLOGY REPORT (SQ) ---
EXAM DESCRIPTION: U/S PROFILE W/O STRESS COMPLETED DATE/TIME: 11/13/2018 9:09 am REASON FOR STUDY: BPP was 6/8 due to low ALEJANDRINA, repeat please COMPARISON: 11/12/2018. TECHNIQUE: Limited brennan-scale realtime and static images of the fetus to measure specified parameter s. LIMITATIONS: None. FINDINGS: HEART RATE: 145 beats per minute. ALEJANDRINA: 8.1 cm. BREATHING MOVEMENT: 2 points. MOVEMENT: 2 points. POSTURE AND TONE: 2 points. QUALITATIVE ALEJANDRINA: 2 points. OTHER: Currently in breech presentation. IMPRESSION: BIOPHYSICAL PROFILE: 10/09. THE AMNIOTIC FLUID INDEX IS 8.1 CM WHICH IS IN THE LOWER 5TH PERCENTILE. Trimester of : Third - 28 weeks to delivery COMMENT: BREATHING MOVEMENTS: 2 POINTS: PRESENT 0 POINTS: ABSENT MOTION: 2 POINTS: PRESENT 0 POINTS: ABSENT TONE: 2 POINTS: PRESENT 0 POINTS: ABSENT AMNIOTIC FLUID VOLUME: 2 POINTS: LARGEST POCKET GREATER THAN 2 CM DEPTH. 0 POINTS: NO POCKET OF 2 CM. TECHNICAL DOCUMENTATION: JOB ID: [id number] [employer]- All Rights Reserved Reading location - IP/workstation name: [email or web address]
[2018-11-13] MEDS: HYDROCHLOROTHIAZIDE 25 MG TABLET PO SCH (09:47)
[2018-11-13] MEDS: INSULIN LISPRO 100 UNIT/ML 3 ML VIAL SUBCUT SCH (09:47)
[2018-11-13] MEDS: LABETALOL HCL 200 MG TABLET PO SCH (09:47)
[2018-11-13] MEDS: INSULIN REG, HUMAN 100 UNIT/ML 3 ML VIAL (PYX) SUBCUT SCH (09:50)
[2018-11-13] MEDS: METFORMIN HCL 500 MG TABLET PO SCH (09:50)
--- NOTE | 2018-11-13 10:39 | PDOC PROGRESS REPORT ---
Subjective Progress Note for:: 11/13/18 Subjective:: pt feels well discusse transfer to [facility] Reason For Visit: Physical Exam - Physical Exam Vital Signs: Temp Pulse Resp BP Pulse Ox 98.0 F 71 16 139/75 H 100 11/13/18 09:31 11/13/18 09:31 11/13/18 09:31 11/13/18 09:31 11/13/18 09:31 Intake & Output 11/12/18 11/13/18 11/14/18 06:59 06:59 06:59 Intake Total 450 720 Balance 450 720 Weight 128.4 kg 128.4 kg General appearance: PRESENT: no acute distress Neurological exam: PRESENT: alert Result Laboratory Results: 11/10/18 12:18 11/10/18 12:18 Impressions: Stress Test 11/13/18 09:00 IMPRESSION: BIOPHYSICAL PROFILE: 10/09. THE AMNIOTIC FLUID INDEX IS 8.1 CM WHICH IS IN THE LOWER 5TH PERCENTILE. Trimester of : Third - 28 weeks to delivery Assessment & Plan - Plan Summary Plan Summary: transfer to [facility]
--- NOTE | 2018-11-13 10:46 | PDOC DISCHARGE SUMMARY ---
General - Admit/Disc Date/PCP Admission Date/Primary Care Provider: 11/10/18 13:03 ROME DE LEON, Discharge Date: 11/13/18 - Additional Information Resuscitation Status: Full Code Discharge Diet: As Tolerated Home Medications: Metformin HCl [Glucophage XR 500 mg Tablet] 500 mg PO BID 01/11/14 Insulin Lispro [Humalog Insulin (Lispro) 100 unit/mL] 100 ml SQ TID 10/27/18 NPH, Human Insulin Isophane [Humulin N (NPH) Insulin 100 unit/mL] 100 ml SQ BID 10/27/18 Labetalol HCl [Trandate] 200 mg PO BID 11/04/18 Vitamin [-U Multiple Vitamin Capsule] 1 cap PO DAILY 11/04/18 History of Present Illness History of Present Illness: SHYANN CONTRERAS is a 38 year old female Physical Exam - Physical Exam Vital Signs: Temp Pulse Resp BP Pulse Ox 98.0 F 71 16 139/75 H 100 11/13/18 09:31 11/13/18 09:31 11/13/18 09:31 11/13/18 09:31 11/13/18 09:31 Intake & Output 11/12/18 11/13/18 11/14/18 06:59 06:59 06:59 Intake Total 450 720 Balance 450 720 Weight 128.4 kg 128.4 kg Result Laboratory Results: 11/10/18 12:18 11/10/18 12:18 Impressions: Stress Test 11/13/18 09:00 IMPRESSION: BIOPHYSICAL PROFILE: 8/8. THE AMNIOTIC FLUID INDEX IS 8.1 CM WHICH IS IN THE LOWER 5TH PERCENTILE. Trimester of : Third - 28 weeks to delivery Plan Discharge Plan: transfer to [facility] Acute Heart Failure - Is this a Heart Failure Patient?: No
[2018-11-13 12:58] VITALS: BP 133/70
== END 2018-11-13 13:05 | disposition short-term general hospital (02) | DRG 831 ==
LOC: LC 11:41 → LR 13:03 → 2S 14:35
PROVIDERS: ADMIT Obstetrics & Gynecology; ATTEND Obstetrics & Gynecology
DX: O16.3 Unspecified maternal hypertension, third trimester (principal); O60.03 Preterm labor without delivery, third trimester; O24.113 Pre-existing type 2 diabetes mellitus, in pregnancy, third trimester; O36.5930 Maternal care for other known or suspected poor fetal growth, third trimester, not applicable or unspecified; Z87.891 Personal history of nicotine dependence; Z79.4 Long term (current) use of insulin; Z3A.32 32 weeks gestation of pregnancy
CPT/HCPCS: 36415; 59025; 76819; 80053; 80307; 80349; 81001; 82570; 82962; 83615; 84156; 84550; 85025; 87081; 96372; G0480; J0702; J1815; J7120